=== PATIENT | male | born 1975 | race Caucasian/White ===

== ENCOUNTER 2019-09-04 17:30 | Outpatient (RCR) | payer OTHER, SELFPAY | END 2019-09-08 23:59 | LOC: NS 17:30 | PROVIDERS: Family Provider Family Medicine; PCP Family Medicine; Visit Provider Family Medicine | DX: Z71.3 Dietary counseling and surveillance (principal); E66.01 Morbid (severe) obesity due to excess calories; Z68.44 Body mass index [BMI] 60.0-69.9, adult | CPT/HCPCS: 97802; 97803 ==

== ENCOUNTER 2019-10-08 16:55 | Outpatient (RCR) | payer OTHER, SELFPAY ==
[2016-10-02 09:38] VITALS: BMI 68.2
== END 2019-10-09 23:59 ==
LOC: NS 16:55
PROVIDERS: Family Provider Family Medicine; PCP Family Medicine; Visit Provider Family Medicine
DX: Z71.3 Dietary counseling and surveillance (principal); E66.01 Morbid (severe) obesity due to excess calories; Z68.44 Body mass index [BMI] 60.0-69.9, adult
CPT/HCPCS: 97803

== ENCOUNTER 2019-10-22 07:49 | Outpatient (RCR) | payer OTHER, SELFPAY ==
[2016-10-02 09:38] VITALS: BMI 68.2
== END 2019-11-09 23:59 ==
LOC: NS 07:49
PROVIDERS: Family Provider Family Medicine; PCP Family Medicine; Visit Provider Family Medicine
DX: Z71.3 Dietary counseling and surveillance (principal); E66.01 Morbid (severe) obesity due to excess calories; Z68.44 Body mass index [BMI] 60.0-69.9, adult
CPT/HCPCS: 97803

== ENCOUNTER 2019-11-26 17:27 | Outpatient (RCR) | payer SELFPAY ==
[2019-11-08 09:25] VITALS: BMI 68.2
== END 2019-12-08 23:59 ==
LOC: NS 17:27
PROVIDERS: Family Provider Family Medicine; PCP Family Medicine; Visit Provider Family Medicine
DX: Z71.3 Dietary counseling and surveillance (principal); E66.01 Morbid (severe) obesity due to excess calories; Z68.44 Body mass index [BMI] 60.0-69.9, adult
CPT/HCPCS: 97803

== ENCOUNTER 2019-12-31 17:15 | Outpatient (RCR) | payer SELFPAY ==
[2019-11-08 09:25] VITALS: BMI 68.2
== END 2020-01-08 23:59 ==
LOC: NS 17:15
PROVIDERS: Family Provider Family Medicine; PCP Family Medicine; Visit Provider Family Medicine
DX: Z71.3 Dietary counseling and surveillance (principal); E66.01 Morbid (severe) obesity due to excess calories; Z68.44 Body mass index [BMI] 60.0-69.9, adult
CPT/HCPCS: 97803

== ENCOUNTER 2020-01-28 16:56 | Outpatient (RCR) | payer SELFPAY ==
[2019-11-08 09:25] VITALS: BMI 68.2
== END 2020-02-07 23:59 ==
LOC: NS 16:56
PROVIDERS: Family Provider Family Medicine; PCP Family Medicine; Visit Provider Family Medicine
DX: Z71.3 Dietary counseling and surveillance (principal); E66.01 Morbid (severe) obesity due to excess calories; Z68.44 Body mass index [BMI] 60.0-69.9, adult
CPT/HCPCS: 97803

== ENCOUNTER 2020-03-11 16:43 | Outpatient (RCR) | payer SELFPAY ==
[2019-11-08 09:25] VITALS: BMI 68.2
== END 2020-03-11 23:59 | disposition home or self-care (01) ==
LOC: NS 16:43
PROVIDERS: Family Provider Family Medicine; PCP Family Medicine; Visit Provider Family Medicine
DX: Z71.3 Dietary counseling and surveillance (principal); E66.01 Morbid (severe) obesity due to excess calories; Z68.44 Body mass index [BMI] 60.0-69.9, adult
CPT/HCPCS: 97803

== ENCOUNTER 2021-03-25 06:25 | Emergency (ER) | payer OTHER, SELFPAY ==
[2021-03-25 06:26] VITALS: BP 161/93; PULSE 62; RESP 16; TEMP 36.5; O2SAT 96; BMI 69.9
--- NOTE | 2021-03-25 06:35 | CT_ITS ---
STUDY: CT BRAIN WITHOUT CONTRAST REASON FOR EXAM: Male, 45 years old patient with new onset vertigo. RADIATION DOSAGE (If Supplied By Facility): CTDIvol = ( 44.99 ) mGy, DLP = ( 779.24 ) mGycm TECHNIQUE: Transaxial CT imaging of the brain was performed without administration of intravenous contrast material. Multiplanar reformations are submitted for interpretation. Individualized dose optimization techniques were used for this CT. COMPARISON: No relevant priors. FINDINGS: Normal soft tissue structures. Normal calvarium. Normal size ventricles and extra-axial spaces for the patient''s age. Normal white matter tracts of the cerebral hemispheres. Normal basal ganglia and thalami. Normal brainstem. Normal cerebellum. There is no intracranial hemorrhage. There are no findings of an acute ischemic infarction. Normal visualized paranasal sinuses. CT/Brain/Head without Contrast IMPRESSION: No CT evidence of acute intracranial hemorrhage. Electronically Signed: Frida Shea MD at 6:59 EDT , Service support ,
--- NOTE | 2021-03-25 06:36 | EDS_ITS ---
HPI <Dr. Josh Byrnes DO - Last Filed: 04/02/21 08:59> History of Present Illness Chief Complaint: Dizziness Informant: patient Narrative Narrative: Patient is a 45-year-old male who presents to the emergency department for dizziness. He states it started earlier this morning. Upon arrival to the emergency department his symptoms are improving. He was leaning up against a wall as he felt like the room was off balance. He has had a few episodes like this before in the past but never lasted a prolonged time. He denies any headache, vision changes associated with this. No neck pain, chest pain or shortness of breath. No heart palpitations. Denies any abdominal pain or nausea/vomiting. He has not tried anything for this. He denies any head trauma. No history of strokes. No weakness or loss of sensation in any extremity. No issues with word finding. Patient denies any recent alcohol use. [facility] <Dr. Josh Byrnes DO - Last Filed: 04/02/21 08:59> [facility] Medical History (Updated 03/25/21 @ 06:[address] Josh Byrnes DO) Asthma Home Medications lisinopril 20 mg PO DAILY #30 tab 03/25/21 [Rx Last Taken Unknown] meclizine 25 mg PO TID PRN #10 tab 03/25/21 [Rx Last Taken Unknown] omega-3 fatty acids [Pepperell 3] 1 cap PO DAILY 03/25/21 [History Last Taken Unknown] Allergy/AdvReac Type Severity Reaction Status Date / Time Penicillins Allergy Rash Verified 10/02/16 09:38 Sulfa (Sulfonamide Allergy Rash Verified 10/02/16 09:38 Antibiotics) Social History Smoking Status: Never smoker ROS <Dr. Josh Byrnes DO - Last Filed: 04/02/21 08:59> ROS ED Constitutional Constitutional ED: Denies chills or fever(s) Eyes Eyes: Denies change in vision ENT ENT ED: Denies epistaxis or rhinorrhea Cardiovascular Cardiovascular: Denies chest pain or palpitations Respiratory/Chest Respiratory/Chest: Denies cough or dyspnea Gastrointestinal Gastrointestinal: Denies abdominal pain, nausea or vomiting Genitourinary Genitourinary ED: Denies dysuria, hematuria or urinary frequency Musculoskeletal Musculoskeletal: Denies back pain or neck pain Integumentary Denies rash Neurologic Neurologic: Reports other Details: Dizziness ; Denies headache(s), paresthesias or weakness EXAM <Dr. Josh Byrnes DO - Last Filed: 04/02/21 08:59> Physical Exam Const Vital Signs: 03/25/21 06:26 03/25/21 06:37 Temperature 97.7 F L Temperature Source Temporal Pulse Rate 62 Respiratory Rate 16 Respiratory Effort Normal Respiratory Pattern Normal Blood Pressure 161/93 H Blood Pressure Mean 115 Pulse Ox 96 Oxygen Delivery Method Room Air Positive well nourished and well developed General Appearance ED: well developed and NAD HEENT Reports normocephalic, head/scalp atraumatic and moist mucous membranes Eyes PERRL and EOMs intact bilaterally Eyes Narrative: Horizontal fatigable nystagmus to left. Negative test of skew. Neck no lymphadenopathy and supple General: Negative for tenderness Chest Wall inspection of chest normal Resp normal respiratory effort and clear to auscultation bilaterally Auscultation: Negative for rales, rhonchi or wheezes Cardio regular rate, regular rhythm and no murmurs GI non-tender Palpation: soft Extremity normal to inspection General Extremety ED: Negative for edema or tenderness General Extremity: Negative for edema Neuro oriented x3, CN's II-XII intact bilaterally and no sensory deficits noted Neuro Narrative: No discoordination with [id number] and [id number]-[id number] test bilaterally. Sensorium / Orientation: alert Motor Exam: strength 5/5 throughout Psych mental status grossly normal Skin no rashes or lesions noted <Dr. Aren Gonzalez MD - Last Filed: 03/25/21 07:54> Physical Exam Const Vital Signs: 03/25/21 06:26 03/25/21 06:37 Temperature 97.7 F L Temperature Source Temporal Pulse Rate 62 Respiratory Rate 16 Respiratory Effort Normal Respiratory Pattern Normal Blood Pressure 161/93 H Blood Pressure Mean 115 Pulse Ox 96 Oxygen Delivery Method Room Air MDM <Dr. Josh Byrnes DO - Last Filed: 04/02/21 08:59> MDM MDM Narrative Medical decision making narrative: Patient presents to the ED for dizziness. It is resolving upon arrival to the ED. His vital signs show mild hypertension but are otherwise normal. He is benign physical exam without any neurological deficits. I have a suspicion that this is a peripheral vertigo. Since he is never been worked up in the past for this we will check a CT scan of the head. He is given a dose of meclizine.s. Patient being signed out due to end of shift. Will have him reassessed and disposition based on patient's symptom. Lab Data Labs: Laboratory Results - last 24 hr 03/25/21 03/25/21 07:04 07:04 WBC 7.0 RBC 4.84 Hgb 14.6 Hct 45.8 MCV 94.6 H MCH 30.2 MCHC 31.9 L RDW Std Deviation 40.2 RDW Coeff of Susan 11.7 Plt Count 256 MPV 8.8 Immature Gran % (Auto) 0.300 Neut % (Auto) 59.6 Lymph % (Auto) 28.3 [place] % (Auto) 9.9 Eos % (Auto) 1.6 Baso % (Auto) 0.3 Absolute Neuts (auto) 4.2 Absolute Lymphs (auto) 1.97 Nucleated RBC % 0 Sodium 139 Potassium 4.7 Chloride 104 Carbon Dioxide 33.0 H Anion Gap 2 L BUN 15 Creatinine 0.89 Estim Creat Clear Calc 103.54 Est GFR (MDRD) Af Amer 120 Est GFR (MDRD) Non-Af 99 BUN/Creatinine Ratio 16.9 Glucose 104 Calcium 8.9 Troponin I < 0.015 Radiography Diagnostic Testing: Radiology Impression Brain CT 03/25/21 06:35 IMPRESSION: No CT evidence of acute intracranial hemorrhage. Electronically Signed: Frida Shea MD at 6:59 EDT , Service support , EKG Initial EKG: Attestation: I personally reviewed and interpreted this EKG as follows: (Rate of 59 bpm in sinus bradycardia. Normal intervals. Normal axis. No significant ST elevations or depressions. No T wave abnormalities.) <Dr. Aren Gonzalez MD - Last Filed: 03/25/21 07:54> [facility] Narrative Medical decision making narrative: Patient turned over to me by the overnight physician. Patient's repeat exam was unremarkable and unchanged. He did the seem to have some improvement with the Antivert. His neurologic exam prior to discharge is normal. PNI and family in the room discussed all of his test results. He will be placed on meclizine at home. Follow-up as needed return if worse. Patient requested that I start him on blood pressure medications. Currently his pressures running 161/85 he states it often runs much higher. He will be started on lisinopril 20 mg once a day to take in the evening. Follow- up with his primary care physician. Hold medication if his blood pressure is running too low. Lab Data Lab results narrative: Patient's CBC was unremarkable with a normal white count hemoglobin 14. Electrolytes are unremarkable. Troponin normal. EKG showed a sinus bradycardia rate of 59 with no acute signs of NV or ischemia. CT of the brain is read by the radiologist was unremarkable. Labs: Laboratory Results - last 24 hr 03/25/21 03/25/21 07:04 07:04 WBC 7.0 RBC 4.84 Hgb 14.6 Hct 45.8 MCV 94.6 H MCH 30.2 MCHC 31.9 L RDW Std Deviation 40.2 RDW Coeff of Susan 11.7 Plt Count 256 MPV 8.8 Immature Gran % (Auto) 0.300 Neut % (Auto) 59.6 Lymph % (Auto) 28.3 [place] % (Auto) 9.9 Eos % (Auto) 1.6 Baso % (Auto) 0.3 Absolute Neuts (auto) 4.2 Absolute Lymphs (auto) 1.97 Nucleated RBC % 0 Sodium 139 Potassium 4.7 Chloride 104 Carbon Dioxide 33.0 H Anion Gap 2 L BUN 15 Creatinine 0.89 Estim Creat Clear Calc 103.54 Est GFR (MDRD) Af Amer 120 Est GFR (MDRD) Non-Af 99 BUN/Creatinine Ratio 16.9 Glucose 104 Calcium 8.9 Troponin I < 0.015 Radiography Diagnostic Testing: Radiology Impression Brain CT 03/25/21 06:35 IMPRESSION: No CT evidence of acute intracranial hemorrhage. Electronically Signed: Frida Shea MD at 6:59 EDT , Service support , EKG Initial EKG: Attestation: I personally reviewed and interpreted this EKG as follows: Interpretation: Sinus Rhythm and Sinus Bradycardia Comments: Sinus bradycardia rate of [address]-T wave abnormalities. Discharge Plan Triage Chief Complaint: Dizziness ED Provider: Josh Byrnes Dx/Rx/DC Orders Clinical Impression: Dizziness Instructions: ED Dizziness, Uncertain Cause Prescriptions: New lisinopril 20 mg tablet 20 mg PO DAILY Qty: 30 RF: 0 meclizine 25 mg tablet 25 mg PO TID PRN (Reason: dizziness) Qty: 10 RF: 0 No Action Pepperell 3 Capsule 1 cap PO DAILY RF: 0 Stand Alone Forms: ED Work / School Excuse Primary Care Provider: Prashant Syed Referrals: Prashant Syed MD [Primary Care Provider] - 3-5 Days Activity Restrictions/Additional Instructions: Follow-up with your primary care physician if you are not improving. Return to emergency department feeling worse. Lisinopril once a day at bedtime for your blood pressure. If your systolic blood pressure which is the top number is running at 110 or lower hold your blood pressure medication. Make sure your primary care physician knows that we started you on blood pressure medication. Meclizine which is also Antivert you can use for the dizziness. Disposition Disposition: Home, Self Care Discharge Date/Time: 03/25/21 08:22
[2021-03-25] MEDS: Meclizine HCl 25 MG Tablet PO (06:40)
--- NOTE | 2021-03-25 06:54 | EKG12_ITS ---
Test Reason : Blood Pressure : / mmHG Vent. Rate : 059 BPM Atrial Rate : 059 BPM P-R Int : 166 ms QRS Dur : 096 ms QT Int : 402 ms P-R-T Axes : 030 -37 021 degrees QTc Int : 397 ms Sinus bradycardia Left axis deviation Abnormal ECG Confirmed by BUTCH AQUINO, RYAN ([id number]), editor in chief JYOTI UREÑA ([id number]) on 03/27/2021 10:37:40 A M Referred By: FIDELINA Confirmed By:ERIC RAE MD
--- NOTE | 2021-03-25 06:57 | ED.RN ---
Patient ambulated to front er door and back and reports it is not as bad but feels like on a boat.
[2021-03-25 07:09] LABS: Absolute Lymphocyte Count 1.97 X10^3/uL (0.83-4.51); Absolute Neutrophil Count 4.2 X10^3/uL (2.0-7.7); Basophil# 0.02 X10^3/uL; Basophil% 0.3 % (0-1); Eosinophil# 0.11 X10^3/uL; Eosinophils% 1.6 % (0-5); Hematocrit 45.8 % (40-54); Hemoglobin 14.6 g/dL (13.0-16.5); Lymphocyte # 1.97 X10^3/ul (0.83-4.51); Lymphocyte % 28.3 % (19-41); Mean Corp Hgb Conc 31.9 g/dL (32-36); Mean Corpuscular Hgb 30.2 pg (27.0-32.0); Mean Corpuscular Volume 94.6 fL (80-94); Mean Platelet Vol. 8.8 fl (6.2-12.0); Monocyte# 0.69 X10^3/uL; Monocyte% 9.9 % (0-10); NRBC Flagged by Analyzer 0 % (0-5); Neutrophil # 4.16 X10^3/uL (2.7-7.7); Neutrophil % 59.6 % (47-70); Platelet Count 256 K/mm3 (150-450); RBC Distribution Width CV 11.7 % (11.6-14.6); RBC Distribution Width SD 40.2 fl (35.1-43.9); Red Blood Count 4.84 M/mm3 (4.6-6.2)
[2021-03-25 07:27] LABS: Anion Gap 2 (5-15); BUN 15 mg/dL (7-18); BUN/Creat Ratio 16.9 RATIO (10-20); Calcium,Total 8.9 mg/dL (8.5-10.1); Chloride 104 mmol/L (98-107); Creatinine, Serum 0.89 mg/dL (0.70-1.30); EST Glomerular Filtration Rate 99 mL/min (>60); Est Glom Filt Rate - Afr Amer 120 mL/min (>60); Estimated Creatinine Clearance 103.54 ml/min; Glucose 104 mg/dL (74-106); Potassium 4.7 mmol/L (3.5-5.1); Sodium Level 139 mmol/L (136-145)
[2021-03-25 08:06] VITALS: BP 151/85; RESP 16; O2SAT 100
== END 2021-03-25 08:22 | disposition home or self-care (01) ==
PROVIDERS: Emergency Provider Emergency Medicine; PCP Family Medicine
DX: R42 Dizziness and giddiness (principal); R00.1 Bradycardia, unspecified
CPT/HCPCS: 70450; 80048; 84484; 85025; 93005; 99284; A4216

== ENCOUNTER 2022-09-20 03:28 | Emergency (ER) | payer OTHER, SELFPAY ==
[2022-09-20 03:29] VITALS: BP 163/95; PULSE 89; RESP 24; TEMP 35.9; O2SAT 96; BMI 74.8
--- NOTE | 2022-09-20 03:40 | EX.ED.GUMALE ---
HPI History of Present Illness Chief Complaint: Complaint Informant: patient Pain Onset: Hours (1-2) Context: - (Penis, upon trying to urinate) Timing: Continuous Current Severity: Mild Maximum Severity: Mild Worsened by: Trying to urinate Relieved by: Nothing Penile Discharge Genital Discharge Amount: None Urinary Symptoms Genitourinary Symptoms: Retention Narrative Narrative: Patient states he got up to urinate this morning and is unable although he still feels the need to go. Some discomfort in the tip of the penis, feels like the urine got to the tip but will not come out. He states he urinated okay around 6-8 hours ago. He states he commonly has trouble making a good stream of urine. Has never seen a urologist but did have this happen once before remotely. He denies any gross hematuria tonight. He takes no anticoagulants. [facility] Medical History Asthma Home Medications cephalexin 500 mg capsule 500 mg PO Q6 #28 CAPSULES 09/20/22 [Rx Last Taken Unknown] lisinopril 20 mg tablet 40 mg PO DAILY 09/20/22 [History Last Taken Unknown] Allergy/AdvReac Type Severity Reaction Status Date / Time Penicillins Allergy Rash Verified 10/02/16 09:38 Sulfa (Sulfonamide Allergy Rash Verified 10/02/16 09:38 Antibiotics) Social History Smoking Status: Current every day smoker tobacco type: smokeless tobacco ROS ROS ED Constitutional Constitutional ED: Denies chills or fever(s) Gastrointestinal Gastrointestinal: Denies abdominal pain, nausea or vomiting Genitourinary Genitourinary ED: Reports genital pain and other Details: Urinary retention ; Denies dysuria, flank pain, hematuria, scrotal pain or scrotal swelling Musculoskeletal Musculoskeletal: Denies back pain or neck pain Neurologic Neurologic: Denies headache(s), paresthesias or weakness EXAM Physical Exam Const Vital Signs: 09/20/22 03:29 Temperature 96.6 F L Temperature Source Temporal Pulse Rate 89 Respiratory Rate 24 H Blood Pressure 163/95 H Blood Pressure Mean 117 Pulse Ox 96 Oxygen Delivery Method Room Air Positive well nourished, well developed and obese General Appearance ED: well developed and NAD Nutritional Appearance: obese HEENT Reports moist mucous membranes normocephalic and atraumatic GI non-tender and non-distended GI Narrative: Morbid obesity limits exam no CVA tenderness Narrative: Normal nontender scrotum/testicles. Glans penis not able to be inspected or palpated due to obesity even with patient standing while examined. No tenderness with the tissues I am able to examine. Neuro oriented x3, CN's II-XII intact bilaterally, moves all extremities, no focal motor deficits and no sensory deficits noted Psych mental status grossly normal Skin Lesions: no lesions Rashes: no rashes MDM MDM MDM Narrative Medical decision making narrative: We did a bladder scan at the bedside, it estimated 835 cc. We had the patient attempt to urinate again, he was unable to get anything out. Therefore I discussed my recommendation for a Chan catheter with Urojet/lidocaine pretreatment, he was amenable. However, his glans penis was extremely difficult to access due to his obesity. Nursing had trouble as well. They were not able to pass catheter through the urethra, however they could barely see it enough to get a female straight catheter into it, they felt a pop only a couple centimeters in, but the catheter would not advance further, and a relatively small amount of urine was able to be obtained, enough for urinalysis, and it was grossly cloudy and appeared to have sediment. This was not deep enough to be prostate-related obstruction. For this reason, while awaiting urinalysis, he was sent for CT. It was unremarkable. While we were awaiting results, patient tried to urinate again and he was able to urinate quite a bit, nurses re-bladderScanned him for around 200 estimated amount of urine, and he feels much better. Given this we will abort further attempts to catheterize him, nor do I feel it is necessary to wait until the morning when urology may be available since there is no one on-call tonight. I am sending his urine for culture, starting him on an antibiotic given that his urine appears to be infected, and referring him to urology as an outpatient. We discussed reasons to return here he is comfortable with that plan. Put him on cephalexin. He has a sulfa allergy, as well as a penicillin allergy which is just a rash. He we gave him the first pill here and he did fine. Lab Data Attestation: I reviewed the patient's lab results. Labs: Laboratory Results - last 24 hr 09/20/22 04:30 Urine Color Yellow Urine Clarity Sl. Cloudy Urine pH 6.0 Ur Specific [place] 1.015 Urine Protein 100 H Urine Glucose (UA) Normal Urine Ketones Negative Urine Occult Blood 250 H Urine Nitrite Positive H Urine Bilirubin Negative Urine Urobilinogen Normal Ur Leukocyte Esterase 500 H Urine RBC > 100 SEEN Urine WBC 25-50 SEEN Ur Squamous Epith Cells 0 SEEN Ur Transition Epith Cell 0-5 SEEN Ur Renal Epithelial Cell 0-5 SEEN Amorphous Sediment 2+ Urine Bacteria 1+ Urine Mucus 0 SEEN Radiography Diagnostic Testing: Clinical Impression(s) from Imaging Studies Abdomen/Pelvis CT 09/20/22 04:42 IMPRESSION: Some mild distention of the bladder. This may indicate urinary retention/bladder outlet obstruction. No obstructing mass is identified. Electronically Signed: Deep Galeano MD at 5:07 EST , Discharge Plan Triage Chief Complaint: Complaint ED Provider: René Santacruz Dx/Rx/DC Orders Clinical Impression: Acute lower UTI, Acute urinary retention Instructions: ED Bladder Infection, Male (Adult) Prescriptions: New cephalexin [cephalexin] 500 MG capsule 500 mg PO Q6 Qty: 28 0RF No Action lisinopril 20 mg tablet 40 mg PO DAILY Primary Care Provider: Prashant Syed Referrals: Sridhar Liang MD [Med Staff - Active Staff] - 3-5 Days (or more, just as long as it is more than 2-3 days so that the culture has time to result) Prashant Syed MD [Primary Care Provider] - Disposition Disposition: Home, Self Care
--- NOTE | 2022-09-20 04:42 | CT_ITS ---
EXAM: CT ABDOMEN AND PELVIS WITHOUT INTRAVENOUS CONTRAST CLINICAL INDICATION: acute urinary retention TECHNIQUE: Helically acquired images were obtained of the abdomen and pelvis without intravenous contrast. This CT exam was performed using one or more of the following dose reduction techniques: automated exposure control, adjustment of the mA and/or kV according to patient size, and/or use of iterative reconstruction technique. This report was created using [employer] report generation technology. COMPARISON: None. FINDINGS: LOWER THORAX: Unremarkable. Lung bases are clear. No cardiomegaly. No significant pericardial effusion. ABDOMEN: LIVER: Unremarkable. Homogeneous. GALLBLADDER AND BILE DUCTS: Unremarkable. No calcified gallstones. No gallbladder distention or wall edema. No intra- or extrahepatic biliary ductal dilation. PANCREAS: Unremarkable. No focal cystic mass. SPLEEN: Unremarkable. Normal size without focal cystic or solid mass. ADRENALS: Unremarkable. No nodules. KIDNEYS AND URETERS: Unremarkable. Normal renal size and position. No hydronephrosis. STOMACH AND BOWEL: Unremarkable. No stomach or bowel distention. No focal inflammatory change. PELVIS: APPENDIX: No evidence of acute appendicitis. BLADDER: Some mild distention of the bladder. REPRODUCTIVE: Unremarkable as visualized. No mass. ABDOMEN and PELVIS: INTRAPERITONEAL SPACE: Unremarkable. No ascites or other fluid collection. No free air. BONES/JOINTS: Degenerative changes of the spine. No suspicious lytic or blastic abnormality. SOFT TISSUES: Unremarkable. No discrete abdominal or pelvic wall hernia. VASCULATURE: Unremarkable. Abdominal aorta is non-dilated. LYMPH NODES: Unremarkable. No enlarged lymph nodes. CT/Abdomen/Pelvis without Cont IMPRESSION: Some mild distention of the bladder. This may indicate urinary retention/bladder outlet obstruction. No obstructing mass is identified. Electronically Signed: Deep Galeano MD at 5:07 [facility] ,
[2022-09-20 04:55] LABS: Mucous, Urine 0 SEEN /hpf (<or=2+); Squamous Epithelial Cells - UA 0 SEEN /hpf (0-5)
[2022-09-20 04:56] LABS: Color, Urine Yellow (Yellow); Glucose, Dipstick Normal (Normal); Ketone-Dipstick Negative (Negative); Leukocyte Esterase-Dipstick 500 /ul (Negative); Nitrite-Dipstick Positive (Negative); Occult Blood-Urine 250 /ul (Negative); Protein-Dipstick 100 mg/dl (Negative); Specific Gravity, Urine 1.015 (1.002-1.030); Urine Bilirubin Dipstick Negative (Negative); Urine Clarity Sl. Cloudy (Clear); Urine Urobilinogen Normal (Normal)
[2022-09-20 05:04] LABS: Red Blood Cells-Urine > 100 SEEN /hpf (0-5); White Blood Cells 25-50 SEEN /hpf (0-5)
[2022-09-20 05:05] LABS: Amorphous Sediment 2+; Bacteria 1+ /hpf (None Seen); Renal Epithelial Cells 0-5 SEEN /hpf (0-5); Transitional Epithelial - Ur 0-5 SEEN /hpf (0-5)
[2022-09-20] MEDS: Lidocaine Jelly 2% 20 ML Syringe (URO-JET) 1 APPLIC TOPICAL (05:10)
--- NOTE | 2022-09-20 05:20 | NURSING ---
multiple attempts made to insert vargas with various size catheters. Female straight cath used and obtained urine sample. MD aware. Attempted to have patient stand but also unable to place vargas. Pt to cat scan and then up to RR and voided in toilet.
[2022-09-20] MEDS: Cephalexin 250 MG Capsule 500 MG PO (05:39)
== END 2022-09-20 05:41 | disposition home or self-care (01) ==
PROVIDERS: Emergency Provider Emergency Medicine; PCP Family Medicine; Visit Provider Emergency Medicine
DX: N39.0 Urinary tract infection, site not specified (principal); R33.9 Retention of urine, unspecified; Z79.899 Other long term (current) drug therapy
CPT/HCPCS: 74176; 81001; 87086; 99283

== ENCOUNTER 2023-05-12 15:45 | Emergency (ER) | payer OTHER, SELFPAY ==
[2023-05-12 15:46] VITALS: BP 177/115; PULSE 92; RESP 17; TEMP 36.2; O2SAT 99; BMI 72.3
--- NOTE | 2023-05-12 15:50 | RAD_ITS ---
STUDY: XR Shoulder Min 2 Views REASON FOR EXAM: Male, 47 years old. pain TECHNIQUE: XR Shoulder 4 Views RIGHT COMPARISON: None. FINDINGS: There is moderate degenerative arthrosis of the glenohumeral articulation. There is degenerative arthrosis of the acromioclavicular joint without inferior osseous spur formation. Normal acromion. Normal humeral head and visualized proximal humerus. The soft tissue structures are unremarkable. Normal visualized pulmonary apex. RAD/Shoulder min 2 Views IMPRESSION: There is moderate degenerative arthrosis of the glenohumeral articulation. Electronically Signed: Deep Velez MD at 16:22 EDT ,
--- NOTE | 2023-05-12 17:15 | EX.ED.UPPERE ---
HPI <MAYA Baxter - Last Filed: 05/12/23 18:54> History of Present Illness Chief Complaint: Upper Extremity Injury Narrative Narrative: Patient presenting today with pain to his right shoulder that he has had for the past day. He reports that he does a lot of repetitive throwing motions at work with his right arm throwing straps over trucks and thinks he might have overused it. He denies any direct trauma to his shoulder. He denies any paresthesias to his right arm. PFSH <MAYA Baxter - Last Filed: 05/12/23 18:54> [facility] Medical History Asthma Home Medications cephalexin 500 mg capsule 500 mg PO Q6 #28 CAPSULES 09/20/22 [Rx Last Taken Unknown] lisinopril 20 mg tablet 40 mg PO DAILY 09/20/22 [History Last Taken Unknown] Allergy/AdvReac Type Severity Reaction Status Date / Time Penicillins Allergy Rash Verified 05/12/23 15:46 Sulfa (Sulfonamide Allergy Rash Verified 05/12/23 15:46 Antibiotics) Social History Smoking Status: Current every day smoker tobacco type: smokeless tobacco ROS <MAYA Baxter - Last Filed: 05/12/23 18:54> ROS ED Constitutional Constitutional ED: Denies chills or fever(s) Cardiovascular Cardiovascular: Denies chest pain or palpitations Respiratory/Chest Respiratory/Chest: Denies cough or dyspnea Gastrointestinal Gastrointestinal: Denies abdominal pain, nausea or vomiting Musculoskeletal Musculoskeletal: Reports arthralgias; Denies back pain or neck pain Integumentary Denies abscess, Abrasions or rash Neurologic Neurologic: Denies paresthesias or weakness EXAM <MAYA Baxter - Last Filed: 05/12/23 18:54> Physical Exam Const Vital Signs: 05/12/23 15:46 Temperature 97.2 F L Temperature Source Temporal Pulse Rate 92 Respiratory Rate 17 Blood Pressure 177/115 H Blood Pressure Mean 135 Pulse Ox 99 Oxygen Delivery Method Room Air Positive well nourished, well developed and no apparent distress General Appearance ED: well developed HEENT Reports normocephalic and head/scalp atraumatic Mouth ED: Yes moist mucous membranes normal Eyes PERRL and EOMs intact bilaterally Neck full ROM and supple Chest Wall inspection of chest normal Resp normal respiratory effort and clear to auscultation bilaterally Cardio regular rate and regular rhythm GI soft to palpation, non-tender, non-distended and no masses Back/Spine normal ROM and normal to inspection Extremity normal to inspection and full ROM Extremity Narrative: Full range of motion to the right shoulder, no tenderness to palpation, positive pain with the Neer sign and Santacruz test, negative speeds test, negative empty can test. Radial pulses 2+ and equal bilaterally, good capillary refill, sensation intact Neuro oriented x3, CN's II-XII intact bilaterally, moves all extremities, no focal motor deficits and no sensory deficits noted Sensorium / Orientation: awake and alert Psych mental status grossly normal and thought process normal Skin no rashes or lesions noted and no wounds [facility] <MAYA Baxter - Last Filed: 05/12/23 18:54> [facility] Narrative Medical decision making narrative: Patient presenting today due to pain in his right shoulder that he has had for the past day. He did not have any injury to the shoulder. He reports he does a lot of repetitive throwing motions at work throwing straps over trucks. He does have full range of motion in his right shoulder. X-ray obtained and shows moderate degenerative arthrosis of the glenohumeral articulation. He did not want anything for pain here. He is to alternate Tylenol and ibuprofen at home for his pain and has been given an orthopedic follow-up. He was given off work for tomorrow and is to use supportive care measures for his symptoms. He has been given RICE instructions. He will be discharged home in stable condition and is comfortable with plan. Radiography X-Ray: Read by ED Physician and Read by Radiologist Diagnostic Testing: Clinical Impression(s) from Imaging Studies Shoulder X-Ray 05/12/23 15:50 IMPRESSION: There is moderate degenerative arthrosis of the glenohumeral articulation. Electronically Signed: Deep Velez MD at 16:22 EDT , <Dr. Riana Stapleton, DO - Last Filed: 05/13/23 11:03> [facility] Narrative Medical decision making narrative: Patient presenting today due to pain in his right shoulder that he has had for the past day. He did not have any injury to the shoulder. He reports he does a lot of repetitive throwing motions at work throwing straps over trucks. He does have full range of motion in his right shoulder. X-ray obtained and shows moderate degenerative arthrosis of the glenohumeral articulation. He did not want anything for pain here. He is to alternate Tylenol and ibuprofen at home for his pain and has been given an orthopedic follow-up. He was given off work for tomorrow and is to use supportive care measures for his symptoms. He has been given RICE instructions. He will be discharged home in stable condition and is comfortable with plan. I have personally performed a face to face assessment of the patient and have reviewed the BANDAR Note. I performed a substantive portion of the visit including all aspects of the following. My hubbard findings include: History is patient is a 47-year-old male presenting with right shoulder pain. 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 This seems to be exacerbating the pain. Denies any other injury or trauma. Range of motion is preserved but is painful. No pinpoint bony tenderness. Good radial pulse. Medical x-ray was ordered which shows moderate degenerative arthrosis of the glenohumeral articulation. This is reviewed by myself as well as radiology. I do not think there is any subluxation or dislocation. Patient counseled that he has arthritis in his shoulder but he also could have an injury to his rotator cuff. Is given referral to orthopedics. Is given a work note for tomorrow per his request. Counseled on RICE therapy as well as alternating ibuprofen and Tylenol. He verbalized good understanding. Discharged home in stable condition. Other additions or changes: [None] Discharge Plan Triage Chief Complaint: Upper Extremity Injury ED Midlevel Provider: Jessica Whitman ED Provider: Riana Stapleton Dx/Rx/DC Orders Clinical Impression: Shoulder pain, right Instructions: ED Shoulder Pain, Uncertain Cause Prescriptions: No Action lisinopril 20 mg tablet 40 mg PO DAILY cephalexin [cephalexin] 500 MG capsule 500 mg PO Q6 Qty: 28 0RF Stand Alone Forms: ED Work / School Excuse Primary Care Provider: Prashant Syed Referrals: Prashant Syed MD [Primary Care Provider] - Brock Shea MD [Med Staff - Active Staff] - 1 Week if not improving Activity Restrictions/Additional Instructions: Please alternate Tylenol and ibuprofen for your pain, ice your shoulder several times a day for the next few days and limit use. Follow-up with orthopedics if your pain does not improve. Disposition Disposition: Home, Self Care Discharge Date/Time: 05/12/23 17:51
== END 2023-05-12 17:51 | disposition home or self-care (01) ==
PROVIDERS: Emergency Provider Emergency Medicine; PCP Family Medicine; Visit Provider Emergency Medicine
DX: M25.511 Pain in right shoulder (principal); F17.290 Nicotine dependence, other tobacco product, uncomplicated; X50.3XXA Overexertion from repetitive movements, initial encounter; Y93.89 Activity, other specified
CPT/HCPCS: 99281 ×2; 73030; 99282

== ENCOUNTER 2023-11-15 16:20 | Emergency (ER) | payer OTHER, SELFPAY ==
[2023-11-15 16:21] VITALS: BP 133/88; PULSE 109; RESP 25; TEMP 36.3; O2SAT 96
--- NOTE | 2023-11-15 18:06 | EDS_ITS ---
HPI History of Present Illness Chief Complaint: Complaint Narrative Narrative: 48-year-old male presenting for evaluation of decreased urinary output. Patient states he chronically does not drink very much water. He noted that Tuesday was the last time he really had a normal stream. He states he does have some pain at the tip of his penis when he tries to force himself to pee. When he does not and he sits down the pee comes out pretty readily. Patient denies any trauma. Patient denies any systemic symptoms such as fevers or chills. He states that yesterday he drank 2?33 ounce smart caban and did not have any increase in urine. Patient does drink self his juice and pop but not a lot of water. PFSH PFS Medical History Asthma BPH (benign prostatic hyperplasia) Hyperlipemia Hypertension Home Medications cephalexin 500 mg capsule 500 mg PO Q6 #28 CAPSULES 09/20/22 [Rx Last Taken Unkn own] lisinopril 20 mg tablet 40 mg PO DAILY 09/20/22 [History Last Taken Unknown] Allergy/AdvReac Type Severity Reaction Status Date / Time Penicillins Allergy Rash Verified 11/15/23 16:24 Sulfa (Sulfonamide Allergy Rash Verified 11/15/23 16:24 Antibiotics) Surgical History H/O adenoidectomy Social History Smoking Status: Current every day smoker tobacco type: smokeless tobacco ROS ROS ED Constitutional Constitutional ED: Denies chills, fever(s) or sweats Eyes Eyes: Denies blurry vision or change in vision ENT ENT ED: Denies ear pain or sore throat Cardiovascular Cardiovascular: Denies chest pain, palpitations or racing heartbeat Respiratory/Chest Respiratory/Chest: Denies cough, dyspnea or sputum Gastrointestinal Gastrointestinal: Reports other; Denies abdominal pain, constipation, diarrhea, nausea or vomiting Genitourinary Genitourinary ED: Reports other Details: Decreased urinary output ; Denies dysuria, hematuria or urinary frequency Musculoskeletal Musculoskeletal: Denies arthralgias, myalgias or neck pain Integumentary Denies abscess, Abrasions or rash Neurologic Neurologic: Denies headache(s), paresthesias or weakness Psychiatric Psychiatric: Denies anxiety, depression, suicidal ideation or suicidal thoughts Endocrine Endocrinology: Denies polydipsia or polyuria EXAM Physical Exam Const Vital Signs: 11/15/23 16:21 11/15/23 18:21 11/15/23 19:09 Temperature 97.4 F L Temperature Source Temporal Pulse Rate 109 H 98 104 H Respiratory Rate 25 H 16 16 Blood Pressure 133/88 H 172/119 H 181/79 H Blood Pressure Mean 103 136 113 Pulse Ox 96 94 94 Oxygen Delivery Method Room Air Room Air Room Air 11/15/23 20:04 Temperature Temperature Source Pulse Rate 88 Respiratory Rate 12 Blood Pressure 167/102 H Blood Pressure Mean 123 Pulse Ox 96 Oxygen Delivery Method Positive well nourished General Appearance ED: Negative for pallor HEENT Reports moist mucous membranes normocephalic and atraumatic Resp normal respiratory effort Cardio regular rate and regular rhythm GI non-tender and non-distended Narrative: Testicles nontender to palpation. Penis is inverted and I cannot see the tip of the penis. I do not feel any crepitance, I do not see any increased warmth. Nontender on examination. No drainage noted. No rashes. Neuro oriented x3 and CN's II-XII intact bilaterally Sensorium / Orientation: alert Motor Exam: strength 5/5 throughout Psych mental status grossly normal Skin General Skin Exam: Negative for jaundice or pallor MDM MDM MDM Narrative Medical decision making narrative: Patient presenting for evaluation of decreased urinary output. Differential includes UTI, dehydration, urinary outlet obstruction. Patient had bladder scan done which showed about 17 cc in the bladder. IV access was obtained. Patient given a liter of IV fluids. Urinalysis will be obtained to assess for UTI. CBC to assess white blood cell count and hemoglobin. BMP to assess renal function electrolytes. CBC and BMP ultimately unremarkable. Urinalysis is negative for infection. Patient was given IV fluids and he feels well. All questions were answered. I feel he safe to follow-up as an outpatient. Impression: 1. Urinary hesitancy Lab Data Attestation: I reviewed the patient's lab results. Labs: Laboratory Results - last 24 hr 11/15/23 11/15/23 17:58 18:20 WBC 12.1 H RBC 5.13 Hgb 15.4 Hct 48.1 MCV 93.8 MCH 30.0 MCHC 32.0 RDW Std Deviation 41.6 RDW Coeff of Susan 11.9 Plt Count 305 MPV 9.8 Immature Gran % (Auto) 0.400 Neut % (Auto) 74.5 H Lymph % (Auto) 16.6 L [place] % (Auto) 7.4 Eos % (Auto) 0.6 Baso % (Auto) 0.5 Absolute Neuts (auto) 9.1 H Absolute Lymphs (auto) 2.01 Nucleated RBC % 0 Sodium 136 Potassium 3.9 Chloride 102 Carbon Dioxide 33.0 H Anion Gap 1 L BUN 12 Creatinine 0.97 Est GFR (MDRD) Af Amer 107 Est GFR (MDRD) Non-Af 89 BUN/Creatinine Ratio 12.4 Glucose 118 H Calcium 8.9 Urine Color Yellow Urine Clarity Clear Urine pH 6.0 Ur Specific [place] 1.020 Urine Protein 30 H Urine Glucose (UA) Normal Urine Ketones Negative Urine Occult Blood 10 H Urine Nitrite Negative Urine Bilirubin Negative Urine Urobilinogen Normal Ur Leukocyte Esterase 500 H Urine RBC 0 SEEN Urine WBC 10-25 SEEN Ur Squamous Epith Cells 0-5 SEEN Urine Bacteria 0 SEEN Urine Mucus 0 SEEN Discharge Plan Triage Chief Complaint: Complaint ED Provider: Lito Johnson Dx/Rx/DC Orders Prescriptions: No Action lisinopril 20 mg tablet 40 mg PO DAILY cephalexin [cephalexin] 500 MG capsule 500 mg PO Q6 Qty: 28 0RF Primary Care Provider: Prashant Syed Referrals: Prashant Syed MD [Primary Care Provider] - Disposition Disposition: Home, Self Care Discharge Date/Time: 11/15/23 20:05
[2023-11-15 18:19] LABS: Absolute Lymphocyte Count 2.01 X10^3/uL (0.83-4.51); Absolute Neutrophil Count 9.1 X10^3/uL (2.0-7.7); Basophil# 0.06 X10^3/uL; Basophil% 0.5 % (0-1); Eosinophil# 0.07 X10^3/uL; Eosinophils% 0.6 % (0-5); Hematocrit 48.1 % (40-54); Hemoglobin 15.4 g/dL (13.0-16.5); Lymphocyte # 2.01 X10^3/ul (0.83-4.51); Lymphocyte % 16.6 % (19-41); Mean Corpuscular Volume 93.8 fL (80-94); Mean Platelet Vol. 9.8 fl (6.2-12.0); Monocyte% 7.4 % (0-10); NRBC Flagged by Analyzer 0 % (0-5); Neutrophil # 9.05 X10^3/uL (2.7-7.7); Neutrophil % 74.5 % (47-70); Platelet Count 305 K/mm3 (150-450); RBC Distribution Width CV 11.9 % (11.6-14.6); RBC Distribution Width SD 41.6 fl (35.1-43.9); Red Blood Count 5.13 M/mm3 (4.6-6.2); White Blood Count 12.1 K/mm3 (4.4-11.0)
[2023-11-15 18:21] VITALS: BP 172/119; PULSE 98; RESP 16; O2SAT 94
[2023-11-15 18:27] LABS: Bacteria 0 SEEN /hpf (None Seen); Mucous, Urine 0 SEEN /hpf (<or=2+); Red Blood Cells-Urine 0 SEEN /hpf (0-5)
[2023-11-15 18:28] LABS: Color, Urine Yellow (Yellow); Glucose, Dipstick Normal (Normal); Ketone-Dipstick Negative (Negative); Leukocyte Esterase-Dipstick 500 /ul (Negative); Nitrite-Dipstick Negative (Negative); Occult Blood-Urine 10 /ul (Negative); Protein-Dipstick 30 mg/dl (Negative); Urine Bilirubin Dipstick Negative (Negative); Urine Clarity Clear (Clear); Urine Urobilinogen Normal (Normal)
[2023-11-15 18:30] LABS: Anion Gap 1 (5-15); BUN 12 mg/dL (7-18); BUN/Creat Ratio 12.4 RATIO (10-20); Calcium,Total 8.9 mg/dL (8.5-10.1); Chloride 102 mmol/L (98-107); Creatinine, Serum 0.97 mg/dL (0.70-1.30); EST Glomerular Filtration Rate 89 mL/min (>60); Est Glom Filt Rate - Afr Amer 107 mL/min (>60); Glucose 118 mg/dL (74-106); Potassium 3.9 mmol/L (3.5-5.1); Sodium Level 136 mmol/L (136-145)
[2023-11-15] MEDS: 0.9% Normal Saline (1000mL) 1,000 ML 999 ML IV (18:36)
[2023-11-15 18:37] LABS: Squamous Epithelial Cells - UA 0-5 SEEN /hpf (0-5); White Blood Cells 10-25 SEEN /hpf (0-5)
[2023-11-15 19:09] VITALS: BP 181/79; PULSE 104; RESP 16; O2SAT 94
[2023-11-15 20:04] VITALS: BP 167/102; PULSE 88; RESP 12; O2SAT 96
== END 2023-11-15 20:05 | disposition home or self-care (01) ==
PROVIDERS: Emergency Provider Student in an Organized Health Care Education/Training Program; PCP Family Medicine; Visit Provider Student in an Organized Health Care Education/Training Program
DX: R39.11 Hesitancy of micturition (principal); F17.220 Nicotine dependence, chewing tobacco, uncomplicated; I10 Essential (primary) hypertension; E78.5 Hyperlipidemia, unspecified; Z79.899 Other long term (current) drug therapy
CPT/HCPCS: 80048; 81001; 85025; 99282; J7030; A4216

== ENCOUNTER 2024-10-07 02:35 | Emergency (ER) | payer OTHER, SELFPAY ==
[2024-10-07 02:36] VITALS: BP 189/104; PULSE 88; RESP 20; TEMP 36.6; O2SAT 95; BMI 72.3
[2024-10-07 04:12] LABS: Mucous, Urine 0 SEEN /hpf (<or=2+); Squamous Epithelial Cells - UA 0 SEEN /hpf (0-5)
[2024-10-07 04:12] LABS: Absolute Lymphocyte Count 1.99 X10^3/uL (0.83-4.51); Absolute Neutrophil Count 10.5 X10^3/uL (2.0-7.7); Basophil# 0.06 X10^3/uL; Basophil% 0.4 % (0-1); Eosinophil# 0.05 X10^3/uL; Eosinophils% 0.4 % (0-5); Hematocrit 44.7 % (40-54); Hemoglobin 14.4 g/dL (13.0-16.5); Lymphocyte # 1.99 X10^3/ul (0.83-4.51); Lymphocyte % 14.3 % (19-41); Mean Corp Hgb Conc 32.2 g/dL (32-36); Mean Corpuscular Hgb 29.3 pg (27.0-32.0); Mean Platelet Vol. 9.6 fl (6.2-12.0); Monocyte% 8.6 % (0-10); NRBC Flagged by Analyzer 0 % (0-5); Neutrophil # 10.51 X10^3/uL (2.7-7.7); Neutrophil % 75.7 % (47-70); Platelet Count 316 K/mm3 (150-450); RBC Distribution Width CV 12.4 % (11.6-14.6); RBC Distribution Width SD 41.3 fl (35.1-43.9); Red Blood Count 4.91 M/mm3 (4.6-6.2); White Blood Count 13.9 K/mm3 (4.4-11.0)
[2024-10-07 04:20] LABS: Anion Gap 7 (5-15); BUN 20 mg/dL (7-18); BUN/Creat Ratio 20.7 RATIO (10-20); Calcium,Total 8.6 mg/dL (8.5-10.1); Chloride 98 mmol/L (98-107); Creatinine, Serum 0.97 mg/dL (0.70-1.30); EST Glomerular Filtration Rate 88 mL/min (>60); Est Glom Filt Rate - Afr Amer 107 mL/min (>60); Estimated Creatinine Clearance 169.53 ml/min; Glucose 134 mg/dL (74-106); Potassium 3.4 mmol/L (3.5-5.1); Sodium Level 132 mmol/L (136-145)
[2024-10-07 04:31] LABS: Color, Urine Yellow (Yellow); Glucose, Dipstick Normal (Normal); Ketone-Dipstick Negative (Negative); Leukocyte Esterase-Dipstick 500 /ul (Negative); Nitrite-Dipstick Positive (Negative); Occult Blood-Urine 50 /ul (Negative); Protein-Dipstick 100 mg/dl (Negative); Urine Bilirubin Dipstick Negative (Negative); Urine Clarity Sl. Cloudy (Clear); Urine Urobilinogen Normal (Normal)
--- NOTE | 2024-10-07 04:35 | RAD_ITS ---
EXAM: XR ABDOMEN, 2 VIEWS AND XR CHEST, 1 VIEW CLINICAL INDICATION: constipation TECHNIQUE: Frontal view of the chest, frontal view of the abdomen/pelvis and upright or decubitus view of the abdomen. COMPARISON: Chest radiograph, 02/09/2006 FINDINGS: CHEST: LUNGS AND PLEURAL SPACES: No significant abnormality. No consolidation or edema. No pneumothorax. No effusion. HEART: No significant abnormality. Cardiac silhouette not enlarged. MEDIASTINUM: Central airways and mediastinal contour are unremarkable. ABDOMEN: INTRAPERITONEAL SPACE: No free air. GASTROINTESTINAL TRACT: Relative paucity of bowel gas with stool throughout the colon. No bowel obstruction. ORGANS: Normal as visualized. No organomegaly. No abnormal calcifications. TUBES, LINES AND DEVICES: None. BONES/JOINTS: Degenerative changes in the spine and visualized appendicular structures. SOFT TISSUES: No significant findings. RAD/Acute Abdomen Inc Chest IMPRESSION: 1. Relative paucity of bowel gas with stool throughout the colon. No bowel obstruction. 2. No definitive acute pathology in the chest. Electronically Signed: Cisco Curran DO at 7:48 EST ,
[2024-10-07 04:52] LABS: Bacteria 2+ /hpf (None Seen); Red Blood Cells-Urine 0-5 SEEN /hpf (0-5); White Blood Cells 5-10 SEEN /hpf (0-5)
--- NOTE | 2024-10-07 05:41 | EDS_ITS ---
HPI History of Present Illness Chief Complaint: Complaint Informant: patient Narrative Narrative: Patient is a 49-year-old male with past medical history of hypertension hyperlipidemia and BPH. He states he has been having constipation for roughly the past 7 days. He also reports that today he has felt like he has had difficulty emptying his bladder. He states that he normally will have a bowel movement every day or every other day and so 5 to 7 days without 1 is abnormal. He reports that he also has noted some pain along the lower left side of his abdomen. He denies any previous abdominal surgeries history of bowel obstruction or diverticulitis. He denies any fevers or chills associated with this but with the progressing symptoms comes in for evaluation. [facility] Medical History Asthma BPH (benign prostatic hyperplasia) Hyperlipemia Hypertension Home Medications ?Medication ?Instructions ?Recorded ?Last Taken ?Type lisinopril 20 mg tablet 40 mg PO DAILY 09/20/22 Unknown History albuterol sulfate 90 mcg/actuation 2 puff inhalation Q6H PRN PRN 10/07/24 Unknown History aerosol inhaler wheezing ciprofloxacin HCl 500 mg tablet 500 mg PO BID 7 days #14 tabs 10/07/24 Unknown Rx (Cipro) metronidazole 500 mg tablet 500 mg PO TID 7 days #21 tabs 10/07/24 Unknown Rx Allergy/AdvReac Type Severity Reaction Status Date / Time Penicillins Allergy Rash Verified 10/07/24 02:40 Sulfa (Sulfonamide Allergy Rash Verified 10/07/24 02:40 Antibiotics) Surgical History H/O adenoidectomy Social History Smoking Status: Current every day smoker tobacco type: smokeless tobacco ROS ROS ED Constitutional Constitutional ED: Denies chills or fever(s) ENT ENT ED: Denies sore throat Cardiovascular Cardiovascular: Denies chest pain Respiratory/Chest Respiratory/Chest: Denies cough or dyspnea Gastrointestinal Gastrointestinal: Reports abdominal pain and constipation; Denies diarrhea, n ausea or vomiting Genitourinary Genitourinary ED: Reports urinary frequency; Denies dysuria or hematuria Musculoskeletal Musculoskeletal: Denies back pain Integumentary Denies rash Neurologic Neurologic: Denies headache(s) Hematologic/Lymphatic Hematologic/Lymphatic: Denies easy bleeding or easy bruising EXAM Physical Exam Const Vital Signs: 10/07/24 02:36 Temperature 97.9 F Temperature Source Oral Pulse Rate 88 Respiratory Rate 20 H Blood Pressure 189/104 H Blood Pressure Mean 132 Pulse Ox 95 Positive well nourished, well developed and obese General Appearance ED: well developed; Negative for pallor Nutritional Appearance: obese HEENT HEENT Narrative: Normocephalic atraumatic Eyes PERRL and EOMs intact bilaterally General Eye ED: Negative for scleral icterus Neck supple Resp normal respiratory effort and clear to auscultation bilaterally Cardio regular rate and regular rhythm GI non-distended and no masses GI Narrative: Abdomen is obese soft and nondistended with hypoactive bowel sounds. Patient has pain with palpation in the left lower quadrant without voluntary guarding or rigidity. No pulsatile mass or fluid wave. No obvious organomegaly to suggest acute urinary retention/bladder distention. Auscultation: hypoactive bowel sounds Palpation: soft Back/Spine no CVA tenderness Extremity normal to inspection Neuro oriented x3, CN's II-XII intact bilaterally and no sensory deficits noted Sensorium / Orientation: alert Motor Exam: strength 5/5 throughout Psych mental status grossly normal Skin no rashes or lesions noted General Skin Exam: Negative for jaundice or pallor MDM MDM MDM Narrative Medical decision making narrative: Patient arrived to the ER hypertensive but has a past medical history of this and otherwise stable vitals. He denies any previous abdominal surgeries or history of obstruction or ileus. Physical exam does not suggest this either but in order to ensure he does not have air-fluid levels and abdominal perforation or severe constipation a acute abdominal x-ray was obtained. Patient reported feeling urinary frequency and the inability to empty his bladder but by exam he does not have organomegaly/bladder distention. Therefore there is concern for UTI. Patient could also have potential pyelonephritis or acute kidney injury. Basic labs were obtained which does show mild leukocytosis at 13.9. Urine sample shows changes consistent with infection as there is +2 bacteria with 5-10 white blood cells it is nitrite positive and there is no contamination. He does not have any back pain however and this goes against pyelonephritis. The patient's x-ray did not reveal any signs of obstruction or perforation. With pain in the left lower quadrant and constipation he most likely has diverticulitis. As his exam and workup does not suggest perforation I do not feel there is need for admission or IV antibiotics. Patient will be placed on ciprofloxacin and Flagyl as he has a penicillin allergy and this should cover both urine and diverticular disease. However as symptoms have improved with treatment and he does not have signs of obstruction or sepsis there is no need for further evaluation and he is otherwise safe for discharge with symptomatic care History & Record Review Discussion w/independent historian: Patient Lab Data Attestation: I reviewed the patient's lab results. Labs: Laboratory Results - last 24 hr 10/07/24 10/07/24 03:54 04:07 WBC 13.9 H RBC 4.91 Hgb 14.4 Hct 44.7 MCV 91.0 MCH 29.3 MCHC 32.2 RDW Std Deviation 41.3 RDW Coeff of [place] 12.4 Plt Count 316 MPV 9.6 Immature Gran % (Auto) 0.600 Neut % (Auto) 75.7 H Lymph % (Auto) 14.3 L [place] % (Auto) 8.6 Eos % (Auto) 0.4 Baso % (Auto) 0.4 Absolute Neuts (auto) 10.5 H Absolute Lymphs (auto) 1.99 Nucleated RBC % 0 Sodium 132 L Potassium 3.4 L Chloride 98 Carbon Dioxide 28.0 Anion Gap 7 BUN 20 H Creatinine 0.97 Estim Creat Clear Calc 169.53 Est GFR (MDRD) Af Amer 107 Est GFR (MDRD) Non-Af 88 BUN/Creatinine Ratio 20.7 H Glucose 134 H Calcium 8.6 Urine Color Yellow Urine Clarity Sl. Cloudy Urine pH 8.0 Ur Specific [place] 1.010 Urine Protein 100 H Urine Glucose (UA) Normal Urine Ketones Negative Urine Occult Blood 50 H Urine Nitrite Positive H Urine Bilirubin Negative Urine Urobilinogen Normal Ur Leukocyte Esterase 500 H Urine RBC 0-5 SEEN Urine WBC 5-10 SEEN Ur Squamous Epith Cells 0 SEEN Urine Bacteria 2+ Urine Mucus 0 SEEN Radiography Diagnostic Testing: Clinical Impression(s) from Imaging Studies Acute Abdomen Series 10/07/24 04:35 IMPRESSION: 1. Relative paucity of bowel gas with stool throughout the colon. No bowel obstruction. 2. No definitive acute pathology in the chest. Electronically Signed: Cisco Curran DO at 7:48 EST , Acute abdominal x-ray as interpreted by the emergency medicine physician reveals a nonspecific nonobstructive bowel gas pattern. No perforation or significant constipation. Chest x-ray component reveals no acute pathology such as pneumonia or pneumothorax or pleural effusion Discharge Plan Triage Chief Complaint: Complaint Other Complaint: Constipation ED Provider: Jim Frost Dx/Rx/DC Orders Clinical Impression: UTI (urinary tract infection), Diverticulitis, Morbid obesity Instructions: Urinary Tract Infections in Men, ED Diverticulitis Prescriptions: New ciprofloxacin HCl [Cipro] 500 mg tablet 500 mg PO BID 7 Days Qty: 14 0RF metronidazole 500 mg tablet 500 mg PO TID 7 Days Qty: 21 0RF No Action lisinopril 20 mg tablet 40 mg PO DAILY albuterol sulfate 90 mcg/actuation HFA aerosol inhaler 2 puff INHALATION Q6H PRN PRN (Reason: wheezing) Stand Alone Forms: ED Work / School Excuse Primary Care Provider: Prashant Syed Referrals: Prashant Syed MD [Primary Care Provider] - Activity Restrictions/Additional Instructions: Your workup today shows you have a urinary tract infection. With your c onstipation and left lower quadrant pain I do feel you are developing diverticulitis as well. Take the Cipro and Flagyl as directed as this will cover both urine and intestinal infection. It will typically take 2 to 3 days for symptom improvement. Keep yourself well-hydrated and return to the ER should you have any further concerns or worsening of symptoms Print Language: Upper Sorbian Disposition Disposition: Home, Self Care Discharge Date/Time: 10/07/24 05:54
[2024-10-07] MEDS: metroNIDAZOLE 500 MG Tablet PO (05:50)
[2024-10-07] MEDS: Ciprofloxacin 500 MG Tablet PO (05:50)
[2024-10-07 05:54] VITALS: BP 148/99; PULSE 89; RESP 17; TEMP 37.2; O2SAT 99
== END 2024-10-07 05:54 | disposition home or self-care (01) ==
PROVIDERS: Emergency Provider Emergency Medicine; PCP Family Medicine; Visit Provider Emergency Medicine
DX: N39.0 Urinary tract infection, site not specified (principal); E66.01 Morbid (severe) obesity due to excess calories; E78.5 Hyperlipidemia, unspecified; K57.92 Diverticulitis of intestine, part unspecified, without perforation or abscess without bleeding; F17.210 Nicotine dependence, cigarettes, uncomplicated; I10 Essential (primary) hypertension; N40.0 Benign prostatic hyperplasia without lower urinary tract symptoms; J45.909 Unspecified asthma, uncomplicated
CPT/HCPCS: 74022; 80048; 81001; 85025; 87086; 87088; 99284; A4216